=== PATIENT | female | born 1950 | race Caucasian/White ===

== ENCOUNTER → 2016-07-18 | Day surgery (SDC) | payer BC, OTHER ==
[2016-07-13 15:47] VITALS: BMI 28.0
[~2016-07-18] VITALS: Ht 165.1 cm; Wt 78.2 kg
[~2016-07-18] MED LIST: ATROPINE SULFATE 0.1 MG/ML 5ML SYR IV PRN; BACITRACIN ZINC OINT TOP ONE; BIOT5000 PO; CEFAZOLIN 2000 MG/60 ML D5W IV SCH; CHOL20007 PO; CLR10 PO; COEN100C7 PO; CZR50 PO; D5W AND 1/2NSS + 20MEQ KCL 1,000 ML IV SCH; DEXAMETHASONE SOD INJ 4 MG/ML VIAL ONE; EpHEDrine SULFATE INJ 50 MG/ML AMP IV PRN; FENTANYL CITRATE INJ 50 MCG/1 ML 2 ML VIAL IV PRN; FENTANYL CITRATE INJ 50 MCG/1 ML 2 ML VIAL ONE; GLC500 PO; GLIM4TAB PO; GLYCOPYRROLATE INJ 0.2 MG/ML VIAL ONE; HYDC25 PO; HYDROmorphone INJ 1 MG/ML SYR IV PRN; LABETALOL HCL IV 5 MG/ML 20ML ONE; LACTATED RINGER'S 1000ML 1,000 ML IV SCH; LARYING-O-JET KIT (LTA) EXT ONE; LIDOCAINE HCL 2% 2 ML VIAL (20MG/ML) ONE; LIRA18IN INJ; MIDAZOLAM HCL 1 MG/ML 2ML VIAL ONE; MILK200C PO; MIX: LIDOCAINE 1% + MARCAINE 0.5% (50:50) INJ ONE; MULT-506 PO; NEOSTIGMINE METHYLSULFATE 5 MG/5 ML SYR ONE; OMEP40CA PO; ONDANSETRON INJ 2 MG/ML 2 ML VIAL IV PRN; ONDANSETRON INJ 2 MG/ML 2 ML VIAL ONE; OXYC-57 PO; OXYCODONE/ACETAMINOPHEN 5-325 TAB PO PRN; PHENYLEPHRINE 100MCG/ML 5ML SYR ONE; PROPOFOL IV EMULSION 10 MG/ML 20 ML VIAL IV ONE; SALI1SPR15 NAE; SIMV40TA2 PO; VITAMIN B PO
[2016-07-18 06:07] VITALS: BP 164/83; PULSE 78; TEMP 36.7; O2SAT 95; Ht 165.1 cm; Wt 78.2 kg
--- NOTE | 2016-07-18 07:17 | History & Physical Bridge Note ---
H&P Re-Evaluation Bridge Note: I have examined the patient, reviewed the History & Physical and in the interval since the performance of the History & Physical I have noted the following changes of clinical significance: No changes noted, no cardiac clearance needed for surgery.pt has no any cardiac symptoms.
--- NOTE | 2016-07-18 07:31 | History and Physical ---
History & Physical Date & Time of Service: Jul 18, 2016 at 07:23 Chief Complaint: Chronic Cholecystitis Primary Care Physician: Bernadette Ward D.O. History of Present Illness Source: patient pt is a 65 year old female who presents with 2 weeks RUQ pain, with some nausea and vomiting, pt had U/S showed gallbladder sludge, pt denies fever, no diarrhea , no chest pain,pt requests to do cholecystectomy. Social History Smoking Status: Never Smoker Smokeless Tobacco Use: No Alcohol Use: occasionally Drug Use: none Marital Status: Multi-Drug Resistant Organisms History of MDRO: No Allergies Coded Allergies: Cat Dander (Unverified Allergy, Unknown, CAT/DOG DANDER-HIVES, 07/18/16) Doxycycline (Unverified Allergy, Unknown, FACIAL EDEMA, 07/18/16) Iodinated Diagnostic Agents (Verified Allergy, Unknown, LIP SWELLING FELT COLD,SOB?, 07/18/16) Latex1 -Allergic Contact Dermititis (Verified Allergy, Unknown, REDNESS, IRRITATION, 07/18/16) Prednisone (Verified Allergy, Unknown, FACIAL SWELLING, 07/18/16) Sulfamethoxazole w/Trimethoprim (Unverified Allergy, Unknown, NASAL CONGESTION, 07/18/16) Tetracycline (Unverified Allergy, Unknown, UNKNOWN, 07/18/16) Home Medications Scheduled Biotin (Biotin/Maximum Strength), 5,000 MCG PO [id number] Cholecalciferol (Vitamin D3), 1 TAB PO QAM Coenzyme Q10 (Ubidecarenone) (Coq10), 100 MG PO QAM Glimepiride (Amaryl), 4 MG PO QAM Hydrochlorothiazide (Hctz *), 25 MG PO QAM Liraglutide (Victoza), 1.8 MG INJ QAM Loratadine (Claritin), 5 MG PO PRN Losartan Potassium (Cozaar *), 100 MG PO QAM Metformin HCL (Glucophage *), 1,000 MG PO BID Milk Thistle (Silybum Marianum (Milk Thistle), 200 MG PO BID Multivitamin (Multivitamin), 1 TAB PO QAM Omeprazole (Prilosec), 40 MG PO QAM Saline (Saline Nasal [place] ), 1-2 SPRY TAL PRN Simvastatin (Zocor), 40 MG PO QPM [Vitamin B], 1 TAB PO BID Review of Systems Constitutional: No chills, No fatigue, No fever, No problem reported, No sweats , No weakness, No weight loss Eyes: No diplopia, No discharge, No eye pain, No problem reported, No redness, No worsening of vision ENT: No dental problems, No hearing loss, No nasal symptoms, No problem reported, No sore throat, No tinnitus, No trouble swallowing, No unusual epistaxis Respiratory: No cough, No dyspnea at rest, No dyspnea on exertion, No hemoptysis, No problem reported, No shortness of breath, No sputum, No wheezing Cardiovascular: No PND, No chest pain, No claudication, No edema, No orthopnea , No palpitations, No problem reported Abdomen: + nausea, + pain, + vomiting Musculoskeletal: No calf pain, No joint pain, No muscle pain, No problem reported, No swelling Neurologic: No balance problems, No memory loss, No numbness/tingling, No paralysis, No problem reported, No vertigo, No weakness Psychiatric: No anhedonism, No anxiety, No depression symptoms, No insomnia, No problem reported, No substance abuse Hematologic / Lymphatic: No abnormal bleeding/bruising, No clotting problems, No night sweats, No problem reported, No swollen lymph nodes Physical Exam Vital Signs Date Time Temp Pulse Resp B/P Pulse Ox O2 Delivery O2 Flow Rate FiO2 07/18/16 06:07 36.7 78 18 164/83 95 Room Air General Appearance: WD/WN, no apparent distress Head: normocephalic, atraumatic Eyes: normal inspection, PERRL ENT: normal ENT inspection Neck: supple, no adenopathy Respiratory/Chest: chest non-tender, lungs clear Cardiovascular: regular rate, rhythm, no edema, no gallop, no JVD Abdomen/GI: normal bowel sounds, soft, no organomegaly, + tenderness Back: normal inspection Extremities/Musculoskelatal: normal inspection, no calf tenderness, normal capillary refill 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 nml as tested, no motor/sensory deficits Skin: normal color, warm/dry Diagnostics Laboratory Results Results Past 24 Hours Test 07/18/16 06:15 Range/Units Bedside Glucose 225 70-90 mg/dl Diagnostic Radiology U/S study- gallbladder sludge, Impression Assessment and Plan IMP cholecystitis, Plan: pt will have laparoscopic cholecystectomy, possible open or cholangiogram , D/W benefits, risks and alternatives of the procedure, the risks- infection, bleeding, injury CBD, bowel,may need ERCP, [place], stroke, DVT, , pt understood , she agrees with [facility] plan, I answered all questions,
--- NOTE | 2016-07-18 09:02 | [facility] Post Operative Brief Note ---
Immediate Operative Summary Operative Date Jul 18, 2016. Pre-Operative Diagnosis Chronic Cholecystitis Post-Operative Diagnosis Chronic Cholecystitis Procedure(s) Performed Laparoscopic Cholecystectomy Surgeon Dr. Zane Singleton Scouring Machine Operator Surgeon(s) None Estimated Blood Loss 10ML Findings chronic cholecystitis Fluids (cc crystalloids) 1300ml Specimens A. Gallbladder Drains none Complication(s) None Disposition Recovery Room / PACU
--- NOTE | 2016-07-18 09:09 | Discharge Instructions ---
Discharge Instructions Visit Reason for Visit: Chronic Cholecystitis Discharge Goals Goal(s): Decrease discomfort, Improve function Activity Recommendations Activity Limitations: per Instructions/Follow-up section Lifting Limitations: no more than 25 pounds Exercise/Sports Limitations: gradually increase as tolerated May Resume Sexual Activity: when tolerated Shower/Bathe: may shower/bathe in 3 days Driving or Machine Use: resume 3 days after discharge Anesthesia . Post Anesthesia Instructions: If you have had General Anesthesia or IV Sedation: * Do not drive today. * Resume driving when surgeon permits. * Do not make important decisions or sign legal documents today. * Call surgeon for: 1. Temperature elevations greater than 101 degrees F. 2. Uncontrollable pain. 3. Excessive bleeding. 4. Persistent nausea and vomiting. 5. Medication intolerance (nausea, vomiting or rash). * For nausea and vomiting use only clear liquids such as: tea, soda, bouillon until nausea subsides, then gradually increase diet as tolerated. * If you have any concerns or questions, call your surgeon's office. If physician is unavailable and it is an emergency, call 911 or go to the nearest emergency room. . Procedures Procedures Performed: Laparoscopic Cholecystectomy Pending Studies Studies pending at discharge: no Medical Emergencies . Who to Call and When: Medical Emergencies: If at any time you feel your situation is an emergency, please call 911 immediately. . Non-Emergent Contact Call Non-Emergent contact if: you have a fever, temperature is above 100.5, your pain is not controlled, your pain is worsening, wound has increased drainage, wound has increased redness Call [phone], Dr. Singleton, Follow up 1 week, . . "Provider Documentation" section prepared by Zane Singleton.
--- NOTE | 2016-07-18 09:50 | Anesthesiology Progress Note ---
Anesthesia Post Op Note Date & Time Jul 18, 2016 at 09:49 Vital Signs Pain Intensity: 4 Vital Signs Past 12 Hours Date Time Temp Pulse Resp B/P Pulse Ox O2 Delivery O2 Flow Rate FiO2 07/18/16 09:35 58 16 151/71 100 Nasal Cannula 2 07/18/16 09:25 63 16 136/60 100 Nasal Cannula 2 07/18/16 09:15 62 16 158/80 100 Mask 10 07/18/16 09:07 68 14 146/87 100 Mask 10 07/18/16 08:57 36 73 14 148/82 100 Mask 10 07/18/16 06:07 36.7 78 18 164/83 95 Room Air Notes Mental Status: alert / awake / arousable, participated in evaluation Pt Amnestic to Procedure: Yes Nausea / Vomiting: adequately controlled Pain: adequately controlled Airway Patency, RR, SpO2: stable & adequate BP & HR: stable & adequate Hydration State: stable & adequate Anesthetic Complications: no major complications apparent
[2016-07-18 09:55] VITALS: BP 111/68; TEMP 36.7; O2SAT 99
[2016-07-18 10:25] VITALS: BP 138/60; PULSE 69; O2SAT 99
[2016-07-18 10:55] VITALS: BP 136/65; PULSE 75; TEMP 36.7; O2SAT 95
[2016-07-18 11:32] VITALS: BP 133/65; PULSE 72; TEMP 36.7; O2SAT 95
--- NOTE | 2016-07-24 16:54 | OPERATIVE REPORT ---
DATE OF OPERATION: 07/18/2016 PREOPERATIVE DIAGNOSIS: Acute cholecystitis. POSTOPERATIVE DIAGNOSIS: Same. PROCEDURE: Laparoscopic cholecystectomy. SURGEON: Zane Singleton M.D. ANESTHESIA: General. ESTIMATED BLOOD LOSS: About 10 mL. IV FLUIDS: 1200 mL. FINDING: Acute cholecystitis. COMPLICATIONS: None. DRAINAGE: None. INDICATIONS FOR THE PROCEDURE: This is a 65-year-old gentleman who presented to the hospital with acute cholecystitis and patient required to do laparoscopic cholecystectomy, possible open, possible cholangiogram. I did talk to the patient about the benefit and risk, alternate procedure. I indicated the risks may include but not limited such as bleeding, infection, injury to common bile duct, injury to bowel, DVT, myocardial infarction, stroke, even , incisional hernia. The patient understands and desires to proceed. He signed informed consent and I answered all questions. OPERATION AND FINDINGS: DETAILS OF PROCEDURE: We brought the patient to the OR, put the patient in the supine position. The patient received SCD on bilateral legs to prevent DVT. Also, the patient received 2 grams Ancef IV for prophylactic antibiotic. The patient received general anesthesia without difficulty. The abdomen was prepped and draped in routine sterile fashion. After a timeout, I injected local anesthesia by using 1% lidocaine mixed with 0.5% Marcaine just above the umbilical. Then I made a small incision just above umbilical, opened fascia and opened peritoneum under direct vision. I put a [place] trocar in to create pneumoperitoneum by inserting flow rate 6 liter per minute. Pressure not more than 14 mmHg. Once we did a nice pneumoperitoneum, we put a 10 mm camera in to look around the abdomen showing no more findings on the stomach, small bowel, large bowel, liver, no free fluid in the pelvic area, but there was omentum covering the gallbladder. Then, we put another 3.5 mm trocar on the right upper quadrant. Once all trocars in I put grasper in to hold the base of the gallbladder, put direction to the diaphragm and put another grasper in to hold the pouch over the gallbladder, put latter direction to expose the triangle of Calot. The cystic duct was identified and mobilized. Then I put two 5 mm metal clips on the proximal cystic duct, one on the distal cystic duct then I used scissor transecting the cystic duct. Then the cystic artery was identified and mobilized. I put two 5 mm metal clips on the proximal cystic artery, 1 on the distal cystic artery, then I used scissor transecting the cystic artery. The gallbladder wall edema, thickening but we take down the gallbladder through the liver bed by using cautery without difficulty. Then we pulled out the gallbladder through the catch bag then we reinserted [place] trocar in and created pneumoperitoneum again and looked around the abdomen, no active bleeding, no bile leak from the liver bed. No injury to bowel. At this moment we removed all trocars under direct vision. No active bleeding. Pneumoperitoneum was released. Then I closed the umbilical fascial layer by using #1 Vicryl [id number] x2, closed subcutaneous layer by using 2-0 Vicryl, closed skin by using 4-0 Vicryl, another 3.5 mm trocar site closed skin by using 4-0 Vicryl. Then we put the dressing on. The patient tolerated the procedure well. All the instrument, needle and sponge count correct x2 at the end of case. Specimen sent to pathology. The patient was transferred to recovery room in stable condition. After the procedure, I did talk to the patient and family member and they understand about the procedure we did in the OR and the OR finding, they understand. I attest to the content of the Intraoperative Record and any orders documented therein. Any exceptions are noted below. CESAR
== END | disposition home or self-care (01) ==
LOC: C.ACU 05:34
PROVIDERS: ATTEND Surgery
DX: K80.18 Calculus of gallbladder with other cholecystitis without obstruction (principal); Z88.1 Allergy status to other antibiotic agents; Z88.2 Allergy status to sulfonamides; Z91.041 Radiographic dye allergy status; Z88.8 Allergy status to other drugs, medicaments and biological substances